=== PATIENT | male | born 1980 | race Caucasian/White ===

== ENCOUNTER → 2021-07-20 | Outpatient (CLI) | payer OTHER ==
--- NOTE | 2021-07-20 11:37 | 2DMMODE ---
[facility] [place] [employer] [place] [address] 2 D/M-MODE ECHOCARDIOGRAM Name: CALLIE ROMO [facility] [id number] Admission: 07/20/21 Attend Phys: Hay Polanco Discharge: Date of : 82 Report #: [id number] THIS REPORT FOR: cc: Maggi Rodriguez MD,Blaise Castanon MD, [facility] ~ APPROVED REPORT Study performed: 07/20/2021 10:03:52 EXAM: Comprehensive 2D, Doppler, and color-flow Echocardiogram Patient Location: Out-Patient Room #: 2 Status: routine BSA: 2.00 HR: 61 bpm BP: 108/68 mmHg Rhythm: NSR Other Information Study Quality: Excellent Indications 2D Dimensions RVDd: 38.67 mm IVSd: 9.09 (7-11mm) LVOT Diam: 21.55 (18-24mm) LVDd: 49.70 mm PWd: 9.23 (7-11mm) Ascending Ao: 28.72 (22-36mm) LVDs: 34.90 (25-40mm) Left Atrium: 38.33 (27-40mm) Aortic Root: 33.27 mm IVC: 16.00 mm Volumes Left Atrial Volume (Systole) Single Plane 4CH: 39.63 mL Single Plane 2CH: 50.33 mL LA ESV Index: 25.00 mL/m2 Aortic Valve AoV Peak John.: 1.10 m/s AO Peak Gr.: 4.88 mmHg LVOT Max P.21 mmHg LVOT Max V: 1.03 m/s RENEE Vmax: 3.39 cm2 [facility] [address] [place] [address] 2 D/M-MODE ECHOCARDIOGRAM Name: CALLIE ROMO Room #: REG CL [facility]#: [id number] Admission: 07/20/21 Attend Phys: Hay Waller Discharge: Date of : 82 Report #: [id number] Mitral Valve E/A Ratio: 1.9 MV Decel. Time: 197.55 ms MV E Max John.: 1.02 m/s MV A John.: 0.55 m/s MV PHT: 57.29 ms IVRT: 106.11 ms Pulmonary Valve PV Peak John.: 0.88 m/s PV Peak Gr.: 3.10 mmHg Pulmonary Vein P Vein S: 0.31 m/s P Vein A: 0.19 m/s P Vein D: 0.56 m/s P Vein A Dur.: 92.3 msec P Vein S/D Ratio: 0.55 Tricuspid Valve TR Peak John.: 2.20 m/s TR Peak Gr.: 19.44 mmHg PA Pressure: 24.00 mmHg Left Ventricle The left ventricle is normal size. There is normal LV segmental wall motion. There is normal left ventricular wall thickness. Left ventricular systolic function is normal. The left ventricular ejection fraction is within the normal range. LVEF is >55%. The left ventricular diastolic function is normal. Right Ventricle The right ventricle is normal size. The right ventricular systolic function is normal. Atria The left atrium size is normal. The right atrium size is normal. Aortic Valve The aortic valve is normal in structure. No aortic regurgitation is present. There is no aortic valvular stenosis. Mitral Valve The mitral valve is normal in structure. Trace mitral regurgitation. No evidence of mitral valve stenosis. Tricuspid Valve [facility] [address] [place] [address] 2 D/M-MODE ECHOCARDIOGRAM Name: CALLIE ROMO Room #: REG [facility]#: [id number] Admission: 07/20/21 Attend Phys: Hay Waller Discharge: Date of : 82 Report #: [id number] The tricuspid valve is normal in structure. There is trace tricuspid regurgitation. Estimated PAP 24 mmHg. There is no pulmonary hypertension. Pulmonic Valve The pulmonary valve is normal in structure. There is no pulmonic valvular regurgitation. Great Vessels The aortic root is normal in size. IVC is normal in size and collapses >50% with inspiration. Pericardium There is no pericardial effusion. <Conclusion> Normal left ventricular size/wall thickness Ejection fraction 55% Normal right ventricular size/function Normal atrial size Color-flow Doppler study was performed of the aortic/mitral/tricuspid/pulmonary valve Normal aortic/mitral valve structure and function Trace tricuspid valve insufficiency Pulmonary systolic pressure estimated 24 mmHg Normal aortic root size No pericardial effusion <ELECTRONICALLY SIGNED> By: Blaise Lyons MD, FACC 07/20/21 [id number] Blaise Lyons MD, FACC /INF
== END ==
LOC: CV 10:13
PROVIDERS: ATTEND Chiropractor
DX: I51.9 Heart disease, unspecified (principal)